=== PATIENT | male | born 1960 | race Caucasian/White ===

== ENCOUNTER 2019-03-24 20:16 | Emergency (ER) | payer MEDICAID, OTHER ==
--- NOTE | 2019-03-24 21:39 | ED ---
Abdominal Pain/Male - HPI Summary HPI Summary: The patient is a 58 y/o male presenting to [facility] with a chief complaint of right -sided abdominal pain onset three weeks with gradual worsening. He reports that when the pain initially began, it was constant for a few days but then subsided. As the pain has returned, it has worsened. The pain is constantly dull in the right side of the abdomen and flank but intermittently presents as sharp shards of glass that occasionally radiates down the right leg or into the right side of the lower back. He notes that he had a few episode of nausea and vomiting with a fever a few days ago, all of which have since subsided. He denies any diarrhea or fevers. He endorses anxiety and disorientation with the pain, as he does not feel mentally well. He has not taken any medications RNP for treatment. Pain is currently rated 8/10 in severity. He has not experienced this pain before, but he has a history of hepatitis C. PMHx: hole in stomach repair as child. No FHx of abdominal conditions. 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 Medications reviewed. Allergies noted. - History of Current Complaint Chief Complaint: EDFlankPain Stated Complaint: ABD PAIN/DIZZINESS/NAUSEA PER PT Time Seen by Provider: 03/24/19 21:23 Hx Obtained From: Patient Onset/Duration: Lasting Weeks - three, Still Present Timing: Constant Severity Initially: Mild Severity Currently: Moderate Pain Intensity: 8 Pain Scale Used: 0-10 Numeric Location: Discrete At: RUQ, Discrete At: RLQ Radiates: Yes Radiates to: Back, Flank, Other - RLE Character: Other: - constantly dull with intermittent sharpness Aggravating Factor(s): Nothing Alleviating Factor(s): Nothing Associated Signs And Symptoms: Positive: Fever - resolved, Nausea - resolved, Vomiting - resolved, Other - anxious, "disorientation". Negative: Diarrhea - Allergies/Home Medications Allergies/Adverse Reactions: Allergies Allergy/AdvReac Type Severity Reaction Status Date / Time No Known Allergies Allergy Verified 03/24/19 20:21 Home Medications: Home Medications NK [No Home Medications Reported] 03/24/19 [History Confirmed 03/24/19] PMH/Surg Hx/FS Hx/Imm Hx Endocrine/Hematology History: Denies: Hx Diabetes Cardiovascular History: Denies: Hx Hypertension Psychiatric History: Reports: Hx Substance Abuse - Surgical History Surgical History: Yes Surgery Procedure, Year, and Place: "hole in stomach" repair as child Infectious Disease History: Yes Infectious Disease History: Reports: Hx Hepatitis - C Denies: Traveled Outside the [place] in Last 30 Days - Family History Known Family History: Negative: Other - abdominal issues - Social History Alcohol Use: None Alcohol Amount: former 4 years ago Hx Substance Use: Yes Substance Use Type: Reports: None Substance Use Comment - Amount & Last Used: sober for 3 years Hx Tobacco Use: Yes Smoking Status (MU): Former Smoker - Additional Comments History Additional Comments: hepatitis C, "hole in stomach" repair as child, no family history of abdominal conditions Review of Systems - ROS Summary Review of Systems Summary: Home Medications Medication Instructions Recorded Confirmed Type NK [No Home Medications Reported] 03/24/19 03/24/19 History Positive: Fever - resolved Positive: Abdominal Pain - right-side into flank, RLE, and right low back, Vomiting - resolved, Nausea - resolved. Negative: Diarrhea Positive: Anxious, Other - "disorientation" All Other Systems Reviewed And Are Negative: Yes Physical Exam - Summary Physical Exam Summary: General: Well-developed, Thin male. No acute distress. HEENT: Normocephalic, Atraumatic. Eyes: Conjuctiva normal, PERRL. Oropharynx: Clear, mucous membranes moist, (-) exudates. Neck: Soft, FROM, (-) lymphadenopathy, (-) thyromegaly, (-) JVD. Cardiovascular: Normal sinus rhythm, (-) murmur. Lungs: Clear to auscultation bilaterally (-) wheezes, (-) rales, (-) rhonchi. Abdomen: Soft, some mild RUQ tenderness, non-distended, (-) organomegaly, normal bowel sounds. Back: (-) CVA tenderness Extremities: No edema. Skin: Warm, dry, (-) rash. Neuro: Alert and oriented x3, no focal deficits. Psychiatric: Mood normal, flat affect. Triage Information Reviewed: Yes Vital Signs On Initial Exam: Initial Vitals Temp Pulse Resp BP Pulse Ox 98.4 F 66 16 152/92 97 03/24/19 20:19 03/24/19 20:19 03/24/19 20:19 03/24/19 20:19 03/24/19 20:19 Vital Signs Reviewed: Yes Procedures - Sedation Patient Received Moderate/Deep Sedation with Procedure: No Diagnostics - Vital Signs Vital Signs Temp Pulse Resp BP Pulse Ox 03/24/19 20:19 98.4 F 66 16 152/92 97 - Laboratory Result Diagrams: 03/24/19 21:51 03/24/19 21:51 Lab Statement: Any lab studies that have been ordered have been reviewed, and results considered in the medical decision making process. - CT Abd/Pel CT CT Interpretation Completed By: Radiologist Summary of CT Findings: Impression: No CT findings to correlate with patient's symptomatology. ED physician has reviewed this report. Re-Evaluation - Re-Evaluation First Eval Re-Evaluation Time: 00:55 Comment: I have discussed results with the patient and nausea has resolved with Zofran. Discussed symptoms that warrant immediate return to ED. Abdominal Pain Male Course/Dx - Course Course Of Treatment: 58-year-old male presents with vague right upper quadrant pain. Sometimes going into his right lower quadrant sometimes going around to his flank. Seems concerned about his liver as he has known hepatitis C. Has been clean of alcohol or drugs. No fevers or chills. No vomiting diarrhea. Physical exam demonstrates mild discomfort in the right upper quadrant. No other tenderness. Laboratory is demonstrated a normal white count and normal liver function tests. CAT scan demonstrates no acute abnormality of the abdomen pelvis areas. Discussed with patient length. Patient discharged home. Follow up with [facility]. Follow-up sooner for any worsening symptoms. Patient administered IV Zofran for nausea. - Diagnoses Provider Diagnoses: RUQ abdominal pain Discharge ED - Sign-Out/Discharge Documenting (check all that apply): Patient Departure - Patient will be discharged home. - Discharge Plan Condition: Stable Disposition: HOME Patient Education Materials: Abdominal Pain (ED) Referrals: [facility] [Outside] - 3 Days Additional Instructions: Please follow up with your primary care physician within three days. Please return to ED for any new or worsening symptoms. - Billing Disposition and Condition Condition: STABLE Disposition: Home - Attestation Statements Document Initiated by Scribe: Yes Documenting Scribe: Luisa Leon Provider For Whom Scribe is Documenting (Include Credential): Dr. Ofe Pacheco MD Scribe Attestation: Luisa Goldman, scribed for Dr. Ofe Pacheco MD on 03/25/19 at 0337. Scribe Documentation Reviewed: Yes Provider Attestation: The documentation as recorded by the scribe, Luisa Leon accurately reflects the service I personally performed and the decisions made by me, Dr. Ofe Pacheco MD Status of Scribe Document: Viewed
[2019-03-24 22:05] LABS: Urine Appearance Clear; Urine Bilirubin Negative (Negative); Urine Blood 1+ (Negative); Urine Color Yellow; Urine Glucose Negative (Negative); Urine Ketones 1+ (Negative); Urine Nitrite Negative (Negative); Urine Protein Negative (Negative); Urine Specific Gravity 1.018 (1.010-1.030); Urine Urobilinogen Negative (Negative)
[2019-03-24 22:05] LABS: ABS Eosinophils 0.1 10^3/ul (0-0.6); ABS Lymphocytes 1.9 10^3/ul (1.0-4.8); ABS Monocytes 0.6 10^3/ul (0-0.8); ABS Neutrophils 3.9 10^3/ul (1.5-7.7); Eosinophil % 0.9 %; Hematocrit 42 % (42-52); Hemoglobin 14.1 g/dL (14.0-18.0); Lymphocyte % 29.5 %; Mean Corpuscular HGB Conc 34 g/dL (31-36); Mean Corpuscular Hemoglobin 31 pg (27-31); Mean Corpuscular Volume 91 fL (80-94); Mean Platelet Volume 9.2 fL (7.4-10.4); Nucleated Red Blood Cells % 0.1; Platelet Count 127 10^3/uL (150-450); Red Blood Count 4.58 10^6 /uL (4.18-5.48); Red Cell Distribution Width 14 % (10-15); White Blood Count 6.5 10^3/uL (3.5-10.8)
[2019-03-24 22:07] LABS: Urine Bacteria Absent (Absent); Urine Red Blood Cell 1+(3-5/hpf) (Absent); Urine White Blood Cell Trace(0-5/hpf) (Absent)
[2019-03-24 22:10] LABS: INR 1.17 (0.82-1.09)
[2019-03-24 22:18] LABS: ALT 28 U/L (7-52); AST 27 U/L (13-39); Albumin/Globulin Ratio 1.5 (1-3); Alkaline Phosphatase 46 U/L (34-104); Amylase 27 U/L (29-103); Anion Gap 6 mmol/L (2-11); Blood Urea Nitrogen 18 mg/dL (6-24); C Reactive Protein 11.68 mg/L (<8.01); CO2 Carbon Dioxide 28 mmol/L (22-32); Calcium 8.7 mg/dL (8.6-10.3); Chloride 103 mmol/L (101-111); EGFR African American 104.5 (>60); EGFR Non-African American 86.4 (>60); Globulin 2.7 g/dL (2-4); Glucose 84 mg/dL (70-100); Potassium 3.7 mmol/L (3.5-5.0); Sodium 137 mmol/L (135-145); Total Protein 6.7 g/dL (6.4-8.9)
[2019-03-24] MEDS ORDERED: Iohexol 300* (CONTRAST) 10 ML SDV IV ONE (22:54)
[2019-03-25] MEDS ORDERED: Ondansetron INJ* 2 MG/ML VIAL IV ONE (00:36)
[2019-03-25 01:09] VITALS: BP 138/97
== END 2019-03-25 01:06 | disposition home or self-care (01) ==
LOC: ED 20:16
DX: R10.11 Right upper quadrant pain (principal); Z86.19 Personal history of other infectious and parasitic diseases; Z87.891 Personal history of nicotine dependence
CPT/HCPCS: 36415; 74177; 80053; 81003; 81015; 82140; 82150; 83605; 83690; 85025; 85610; 86140; 87086; 96374; 99282; J2405; Q9967

== ENCOUNTER 2019-03-27 21:17 | Emergency (ER) | payer OTHER ==
[2019-03-27] MEDS ORDERED: Dicyclomine CAP* 10 MG PO ONE (22:20)
[2019-03-27] MEDS ORDERED: Famotidine TAB* 20 MG PO ONE (22:20)
--- OUTSIDE RECORDS SUMMARY | 2019-03-27 22:22 | XMS REPORT | Continuity of Care Document ---
:1960 External Reference #:[id number] Author Name Mor Dolan MD (transmitted by agent of provider Caridad Linares) Address [address] [place] [id number] Care Team Providers Name Role Phone Mor Dolan MD - Hospitalist Care Team Information Cable Television Technician [phone] Problems Active Problems Provider Date Nondependent opioid abuse in remission Mor Dolan MD Onset: 03/27/2019 Chronic hepatitis C Mor Dolan MD Onset: 03/27/2019 Right upper quadrant pain Mor Dolan MD Onset: 03/27/2019 Social History Type Date Description Comments Sex Unknown Tobacco Use Start: Unknown End: Unknown Patient is a former smoker Smoking Status Reviewed: 03/27/19 Patient is a former smoker Allergies, Adverse Reactions, Alerts Description No Known Drug Allergies Medications Active Medications SIG Qnty Indications Ordering Provider Date Daily Multiple womens smarty Unknown Vitamins pants Tablets Suboxone Unknown 4-1mg Film Immunizations Description No Information Available Vital Signs Date Vital Result Comment 03/27/2019 1:11pm Height 68 inches 5'8" Weight 144.00 lb Heart Rate 63 /min BP Systolic 118 mmHg BP Diastolic 77 mmHg Body Temperature 97.2 F O2 % BldC Oximetry 97 % BMI (Body Mass Index) 21.9 kg/m2 Results Description No Information Available Procedures Description No Information Available Medical Devices Description No Information Available Encounters Description No Information Available Assessments Date Code Description Provider 03/27/2019 R10.11 Right upper quadrant pain Mor Dolan MD 03/27/2019 B18.2 Chronic viral hepatitis C Mor Dolan MD 03/27/2019 F11.11 Opioid abuse, in remission Mor Dolan MD Plan of Treatment Future Appointment(s):04/16/2019 10:00 am - Mor Dolan MD at [facility] - [address] 03/28/2019 2:40 pm - Joaquim Diaz M.D. at [facility] Ngquivmq69/22/2020 - Mor Dolan, MDR10.11 Right upper quadrant painNew Xrays:US Gallbladder, Ordered: 03/27/19US Liver Elastography, Ordered: 03/27/19Follow up:Week of Apr 72dvE98.2 Chronic viral hepatitis CReferral:Joaquim Diaz MD, Infectious JjdzrfamX50.11 Opioid abuse, in remissionReferral:[facility] [place] [facility], Clinic/Center Functional Status Description No Information Available Mental Status Description No Information Available Referrals Refer to Dr Reason for Referral Status Appt Date [facility] [place] suboxone user, transplant from [place]. Created [facility] opioid abuse hx. [address] [place] [address] [phone] Joaquim Diaz MD Hepatitis C. Created [address] [place] [address] [place] [address] [phone]
--- NOTE | 2019-03-27 22:25 | ED ---
Abdominal Pain/Male - HPI Summary HPI Summary: Pt is a 58 y/o M presenting to the ED with a chief complaint of abd pain initially onset multiple weeks ago. He states he recently had an MRI done and he was not prescribed or diagnosed with anything, but the pain has become acutely worse. He reports nausea, and pain in the mid-right region of his abd. He denies vomiting, fever, diarrhea, or past surgeries on his abd. He states he voiced thoughts of hurting himself while in triage d/t the increased amount of pain and wanting it to stop. - History of Current Complaint Chief Complaint: EDAbdPain Stated Complaint: SEVERE STOMACH PAIN PER PT Time Seen by Provider: 03/27/19 22:09 Hx Obtained From: Patient Onset/Duration: Gradual Onset, Lasting Weeks, Still Present Timing: Constant, Lasting Weeks Severity Initially: Moderate Severity Currently: Severe Pain Intensity: 8 Pain Scale Used: 0-10 Numeric Location: Diffuse Radiates: No Aggravating Factor(s): Nothing Alleviating Factor(s): Nothing Associated Signs And Symptoms: Positive: Nausea. Negative: Fever, Vomiting, Diarrhea - Allergies/Home Medications Allergies/Adverse Reactions: Allergies Allergy/AdvReac Type Severity Reaction Status Date / Time No Known Allergies Allergy Verified 03/24/19 20:21 PMH/Surg Hx/FS Hx/Imm Hx Previously Healthy: Yes Endocrine/Hematology History: Denies: Hx Diabetes Cardiovascular History: Denies: Hx Hypertension Psychiatric History: Reports: Hx Substance Abuse - Surgical History Surgery Procedure, Year, and Place: "hole in stomach" repair as child - Immunization History Date of Influenza Vaccine: 12/2018 Infectious Disease History: Yes Infectious Disease History: Reports: Hx Hepatitis - C Denies: Traveled Outside the [place] in Last 30 Days - Family History Known Family History: Negative: Other - abdominal issues - Social History Alcohol Use: None Alcohol Amount: former 4 years ago Hx Substance Use: Yes Substance Use Type: Reports: None Substance Use Comment - Amount & Last Used: sober for 3 years Hx Tobacco Use: Yes Smoking Status (MU): Former Smoker Review of Systems Negative: Fever Positive: Abdominal Pain, Nausea. Negative: Vomiting, Diarrhea All Other Systems Reviewed And Are Negative: Yes Physical Exam - Summary Physical Exam Summary: Appearance: Well-appearing, Well-nourished, lying in bed comfortably Skin: Warm, dry, no obvious rash Eyes: sclera anicteric, no conjunctival pallor ENT: mucous membranes moist, pharynx appears normal Neck: Supple, nontender Respiratory: Clear to auscultation, no signs of respiratory distress Cardiovascular: Normal S1, S2. No murmurs. Normal distal pulses in tibial and radial bilaterally. Abdomen: Soft, nontender, normal active bowel sounds present Musculoskeletal: Normal, Strength/ROM Intact Neurological: A&Ox3, awake and alert, mentation is normal, speech is fluent and appropriate Psychiatric: affect is normal, does not appear anxious or depressed Triage Information Reviewed: Yes Vital Signs On Initial Exam: Initial Vitals Temp Pulse Resp BP Pulse Ox 97.7 F 72 16 153/94 97 03/27/19 21:19 03/27/19 21:19 03/27/19 21:19 03/27/19 21:19 03/27/19 21:19 Vital Signs Reviewed: Yes Procedures - Sedation Patient Received Moderate/Deep Sedation with Procedure: No Diagnostics - Vital Signs Vital Signs Temp Pulse Resp BP Pulse Ox 03/27/19 21:19 97.7 F 72 16 153/94 97 - Laboratory Result Diagrams: 03/27/19 22:26 03/27/19 22:26 Lab Statement: Any lab studies that have been ordered have been reviewed, and results considered in the medical decision making process. - EKG 2244 Cardiac Rate: NL - 60 EKG Rhythm: Sinus Rhythm ST Segment: Normal Ectopy: None Summary of EKG Findings: EKG at 2244 shows NSR at 60 BPM, P waves, QRS complex, and T waves are within normal limits, T waves and intervals are normal, no ischemic changes. This is a normal EKG. ED physician has reviewed and interpreted this EKG. Abdominal Pain Male Course/Dx - Course Course Of Treatment: Pt is a 58 y/o M presenting to the ED with a chief complaint of abd pain initially onset multiple weeks ago. He reports nausea, and pain in the mid-right region of his abd. He denies vomiting, fever, diarrhea , or past surgeries on his abd. He states he voiced thoughts of hurting himself while in triage d/t the increased amount of pain and wanting it to stop. However he is not actively suicidal; his chief complaint relates to the abdominal pain, not a mental health issue. Pt's physical exam is nml with a benign abdominal exam. EKG at 2244 shows NSR at 60 BPM, P waves, QRS complex, and T waves are within normal limits, T waves and intervals are normal, no ischemic changes. This is a normal EKG. ED physician has reviewed and interpreted this EKG. Pt will be d/c'ed with dx of abd pain. He is stable and agreebale with this plan though quite concerned that a definite diagnosis has not yet been made. - Diagnoses Provider Diagnoses: Abdominal pain Discharge ED - Sign-Out/Discharge Documenting (check all that apply): Patient Departure - Discharge Plan Condition: Good Disposition: HOME Prescriptions: Famotidine TAB* [Pepcid 20 MG TAB*] 40 mg PO BID #40 tab Patient Education Materials: Acute Abdominal Pain (ED) Referrals: [facility] [Outside] - 4 Days Additional Instructions: The repeat lab tests we ran tonkirstie were unremarkable. I suspect the cause of your pain is irritation in the stomach, which can come from a number of conditions including ulcers. I have prescribed high dose pepcid which should help, though it may take a few days to kick in. Followup is very important here , especially if you do not start to improve as I anticipate. You may need more specialized testing, such as an endoscopy. With respect to diet, I would stick to a bland diet for the time being. - Billing Disposition and Condition Condition: GOOD Disposition: Home - Attestation Statements Document Initiated by Sanford: Yes Documenting Scribe: Mer Fang Provider For Whom Sanford is Documenting (Include Credential): Ifeanyi Duncan MD. Scribe Attestation: I, Mer Fang, scribed for Ifeanyi Duncan MD. on 03/28/19 at 1922. Scribe Documentation Reviewed: Yes Provider Attestation: The documentation as recorded by the sanford, Mer Fang accurately reflects the service I personally performed and the decisions made by me, Ifeanyi Duncan MD. Status of Scribe Document: Viewed
[2019-03-27 22:35] LABS: ABS Basophils 0.1 10^3/ul (0-0.2); ABS Eosinophils 0.1 10^3/ul (0-0.6); ABS Lymphocytes 2.3 10^3/ul (1.0-4.8); ABS Monocytes 0.7 10^3/ul (0-0.8); ABS Neutrophils 4.1 10^3/ul (1.5-7.7); Eosinophil % 0.9 %; Hematocrit 40 % (42-52); Hemoglobin 13.6 g/dL (14.0-18.0); Lymphocyte % 31.4 %; Mean Corpuscular HGB Conc 34 g/dL (31-36); Mean Corpuscular Hemoglobin 31 pg (27-31); Mean Corpuscular Volume 90 fL (80-94); Mean Platelet Volume 9.1 fL (7.4-10.4); Platelet Count 151 10^3/uL (150-450); Red Blood Count 4.45 10^6 /uL (4.18-5.48); Red Cell Distribution Width 14 % (10-15); White Blood Count 7.2 10^3/uL (3.5-10.8)
[2019-03-27 22:53] LABS: ALT 39 U/L (7-52); AST 31 U/L (13-39); Albumin 4.1 g/dL (3.2-5.2); Albumin/Globulin Ratio 1.5 (1-3); Alkaline Phosphatase 46 U/L (34-104); Anion Gap 7 mmol/L (2-11); BUN/Creatinine Ratio 13.8 (8-20); Blood Urea Nitrogen 17 mg/dL (6-24); CO2 Carbon Dioxide 26 mmol/L (22-32); Calcium 8.8 mg/dL (8.6-10.3); Chloride 105 mmol/L (101-111); EGFR African American 72.9 (>60); EGFR Non-African American 60.2 (>60); Globulin 2.7 g/dL (2-4); Glucose 97 mg/dL (70-100); Sodium 138 mmol/L (135-145); Total Protein 6.8 g/dL (6.4-8.9)
[2019-03-27] MEDS ORDERED: Morphine 4 MG/ML VIAL (1 ml) 4 MG/ML VIAL IV PRN (23:33)
[2019-03-27] MEDS ORDERED: Ketorolac INJ* 30 MG/ML 1 ML VIAL IV PUSH ONE (23:33)
[2019-03-28 01:39] LABS: Urine Appearance Clear; Urine Bilirubin Negative (Negative); Urine Blood Negative (Negative); Urine Color Yellow; Urine Glucose Negative (Negative); Urine Ketones Trace (Negative); Urine Nitrite Negative (Negative); Urine Protein Negative (Negative); Urine Specific Gravity 1.017 (1.010-1.030); Urine Urobilinogen Negative (Negative)
[2019-03-28 02:58] VITALS: BP 143/89
== END 2019-03-28 01:57 | disposition home or self-care (01) ==
LOC: ED 21:17
DX: R10.84 Generalized abdominal pain (principal); R11.0 Nausea; Z87.891 Personal history of nicotine dependence
CPT/HCPCS: 36415; 80053; 81003; 83605; 83690; 84484; 85025; 86140; 93005; 96374; 99283; A9270-GY; J1885

== ENCOUNTER 2019-04-25 16:41 | Emergency (ER) | payer OTHER ==
--- OUTSIDE RECORDS SUMMARY | 2019-04-25 16:53 | XMS REPORT | Continuity of Care Document ---
:1960 External Reference #:[id number] Author Name Joaquim Diaz M.D. (transmitted by agent of provider Caridad Linares) Address [address] [place] [id number] Care Team Providers Name Role Phone Mor Dolan MD - Hospitalist Care Team Information Casing Crew [phone] Problems Active Problems Provider Date Nondependent opioid abuse in remission Mor Dolan MD Onset: 03/27/2019 Chronic hepatitis C Mor Dolan MD Onset: 03/27/2019 Right upper quadrant pain Mor Dolan MD Onset: 03/27/2019 Social History Type Date Description Comments Sex Unknown Tobacco Use Start: Unknown Patient is a current had quit smoking, smoker, smokes every day recently started again Smoking Status Reviewed: 03/28/19 Patient is a current had quit smoking, smoker, smokes every day recently started again Allergies, Adverse Reactions, Alerts Description No Known Drug Allergies Medications Active Medications SIG Qnty Indications Ordering Provider Date Daily Multiple womens smarty Unknown Vitamins pants Tablets Suboxone Unknown 4-1mg Film Percocet 1 - 2 tabs by Unknown 5-325mg Tablets mouth every 4 - 6 hours as needed for pain. Famotidine Ifeanyi Duncan, 40mg Tablets M.D. Immunizations Description No Information Available Vital Signs Date Vital Result Comment 03/28/2019 2:22pm Height 68 inches 5'8" Weight 144.00 lb Heart Rate 60 /min BP Systolic Sitting 120 mmHg BP Diastolic Sitting 86 mmHg Respiratory Rate 14 /min Body Temperature 96.9 F BMI (Body Mass Index) 21.9 kg/m2 03/27/2019 1:11pm Height 68 inches 5'8" Weight 144.00 lb Heart Rate 63 /min BP Systolic 118 mmHg BP Diastolic 77 mmHg Body Temperature 97.2 F O2 % BldC Oximetry 97 % BMI (Body Mass Index) 21.9 kg/m2 Results Description No Information Available Procedures Description No Information Available Medical Devices Description No Information Available Encounters Description No Information Available Assessments Date Code Description Provider 03/28/2019 B18.2 Chronic viral hepatitis C Joaquim Diaz M.D. 03/27/2019 R10.11 Right upper quadrant pain Mor Dolan MD 03/27/2019 B18.2 Chronic viral hepatitis C oMr Dolan MD 03/27/2019 F11.11 Opioid abuse, in remission Mor Dolan MD Plan of Treatment Future Appointment(s):04/11/2019 2:20 pm - Joaquim Diaz M.D. at [facility] Jjzkoaab05/11/2020 10:00 am - Mor Dolan MD at [facility] - [address] 03/28/2019 - Joaquim Diaz M.D.B18.2 Chronic viral hepatitis CNew Labs:Hepatitis C Genotype, Ordered: 03/28/19Hepatitis C Rna Quant, Ordered: 03/28/19Hepatitis B Surface Ag, Ordered: 03/28/19HIV 1& 2 p24 Screen, Ordered: 03/28/19Fibro Test-Actitest, Serum, Ordered: Follow up:2 weeks Functional Status Description No Information Available Mental Status Description No Information Available Referrals Refer to Dr Reason for Referral Status Appt Date [facility] [place] Of sub[place] user, transplant from [place]. [facility] opioid abuse hx. [address] [place] [address] [phone] Joaquim Diaz MD Hepatitis C. Scheduled 03/28/[address] [place] [address] [place] [address] [phone]
--- OUTSIDE RECORDS SUMMARY | 2019-04-25 16:53 | XMS REPORT | Continuity of Care Document ---
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 [phone] Problems Active Problems Provider Date Nondependent opioid abuse in remission Mor Dolan MD Onset: 03/27/2019 Chronic hepatitis C Mor Dolan MD Onset: 03/27/2019 Right upper quadrant pain Mor Dolan MD Onset: 03/27/2019 Social History Type Date Description Comments Sex Unknown ETOH Use Denies alcohol use ETOH Use Has consumed alcohol in the past Tobacco Use Start: Unknown Patient is a current had quit smoking, smoker, smokes every day recently started again Recreational Drug Use Former Drug User Smoking Status Reviewed: 04/18/19 Patient is a current had quit smoking, smoker, smokes every day recently started again Allergies, Adverse Reactions, Alerts Description No Known Drug Allergies Medications Active Medications SIG Qnty Indications Ordering Provider Date Simethicone 1 tab every 6 30units R10.11 Mor Dolan MD 04/18/2019 80mg hours as needed Chewtabs bloating Senna 1 by mouth every 90caps R10.11 oMr Dolan MD 04/18/2019 8.6mg Capsules day Docu Soft once a day 30caps R10.11 Mor Dolan MD 04/18/2019 100mg Capsules Epclusa 1 by mouth every 28tabs Joaquim DShefali 04/11/2019 400-100mg day Muna Diaz Tablets Daily Multiple womens smarty Unknown Vitamins pants Tablets Suboxone Unknown 4-1mg Film Famotidine Ifeanyi Duncan, 40mg M.D. Tablets Immunizations Description No Information Available Vital Signs Date Vital Result Comment 04/18/2019 1:43pm Height 68 inches 5'8" Weight 137.00 lb Heart Rate 84 /min BP Systolic Sitting 128 mmHg BP Diastolic Sitting 81 mmHg O2 % BldC Oximetry 98 % BMI (Body Mass Index) 20.8 kg/m2 04/11/2019 1:50pm Height 68 inches 5'8" Weight 138.12 lb Heart Rate 72 /min BP Systolic Sitting 140 mmHg BP Diastolic Sitting 82 mmHg Respiratory Rate 14 /min Body Temperature 97.4 F BMI (Body Mass Index) 21.0 kg/m2 Results Test Acquired Date Facility Test Result H/L Range Note Laboratory test 03/28/2019 [facility] Hepatitis C 1a Abnormal Undetected 1 finding [address] [place] [address] [phone] Hepatitis C Rna Quant [id number] IU/mL Abnormal Undetected 2 Hepatitis B Core AB Igm Nonreactive Nonreactive Hepatitis B Surface Ag Nonreactive Nonreactive Afp Tumor Marker 2.4 ng/mL <6.0 3 HIV 1&2 p24 03/28/2019 [facility] HIV 4th Nonreactive Nonreactive Screen [address] [place] [address] [phone] Fibro 03/28/2019 [facility] FibroTest Score 0.26 Test-Actite [address] [place] [address] [phone] FibroTest Stage F0-F1 FibroTest Interpretation no fibrosis 4 ActiTest Score 0.26 ActiTest Grade A0-A1 ActiTest Interpretation no activity 5 FibroTest-ActiTest Comment See Comment 6 [employer] Serial Number [id number] Apolipoprotein A1, S 104 mg/dL Abnormal >=120 Noteq-7-Kjeaduxxsylqf, S 191 mg/dL 100 - 280 Haptoglobin, S 136 mg/dL 30 - 200 Alanine Aminotransferase (Alt) 48 U/L 7-55 Gamma Glutamyltransferase GGT 8 U/L 8 - 61 Bilirubin, Total, S 0.6 mg/dL <=1.2 7 1 ADDITIONAL INFORMATION This test was performed using the CiDRA RealTime HCV Genotype II assay ([employer] [place], [place]). Test Performed by: [place] [address] Main Galley Scullion: Ramiro Renae M.D. Ph.D.; CLIA# [id number] 2 Result in log IU/mL is 6.13. ADDITIONAL INFORMATION The quantification range of this assay is 15 to 100,000,000 IU/mL (1.18 log to 8.00 log IU/mL). Testing was performed using the cinthia HCV test ([employer] with the cinthia [employer]0 System. Test Performed by: [place] [address] Main Galley Scullion: Ramiro Renae M.D. Ph.D.; CLIA# [id number] 3 ADDITIONAL INFORMATION The testing method is an immunoenzymatic assay manufactured by [employer] and performed on the [employer] DxI 800. Values obtained with different assay methods or kits may be different and cannot be used interchangeably. Test results cannot be interpreted as absolute evidence for the presence or absence of malignant disease. Alpha-Fetoprotein values are not interpretable in females for the investigation of malignant disease. Test Performed by: [place] [address] Main Galley Scullion: Ramiro Renae M.D. Ph.D.; CLIA# [id number] 4 FibroTest estimates liver fibrosis FibroTest Score Stage Interpretation 0.00-0.21 F0 no fibrosis 0.21-0.27 F0-F1 no fibrosis 0.27-0.31 F1 minimal fibrosis 0.31-0.48 F1-F2 minimal fibrosis 0.48-0.58 F2 moderate fibrosis 0.58-0.72 F3 advanced fibrosis 0.72-0.74 F3-F4 advanced fibrosis 0.74-1.00 F4 severe fibrosis (Cirrhosis) 5 ActiTest estimates necroinflammatory activity ActiTest Score Grade Interpretation 0.00-0.17 A0 no activity 0.17-0.29 A0-A1 no activity 0.29-0.36 A1 minimal activity 0.36-0.52 A1-A2 minimal activity 0.52-0.60 A2 significant activity 0.60-0.62 A2-A3 significant activity 0.62-1.00 A3 severe activity 6 The reliability of results is dependent on compliance with the preanalytical and analytical conditions recommended by [employer]. The tests have to be deferred for: acute hemolysis, acute hepatitis, acute inflammation, extra hepatic cholestasis. The advice of a specialist should be sought for interpretation in chronic hemolysis and Gilbert's syndrome. The test interpretation is not validated in liver transplant patients. Isolated extreme values of one of the components should lead to caution in interpreting the results. In case of discordance between a biopsy result and a test, it is recommended to seek advice of a specialist. The causes of these discordances could be due to a flaw of the test or to a flaw in the biopsy: i.e. a liver biopsy has a 33% variability rate for one fibrosis stage. FibroTest is interpretable for chronic hepatitis B and C, alcoholic and non alcoholic steatosis. ActiTest is interpretable for chronic hepatitis B and C. ADDITIONAL INFORMATION This test was developed and its performance characteristics determined by [facility] in a manner consistent with CLIA requirements. This test has not been cleared or approved by the U.S. Food and Drug Administration. 7 Test Performed by: [facility] [address] [place] [address] Main Galley Scullion: Ramiro Renae M.D. Ph.D.; CLIA# [id number] Test Performed by: [facility] [address] [place] [address] Main Galley Scullion: Ramiro Renae M.D. Ph.D.; [facility]# [id number] Procedures Date Code Description Status 03/06/2011 73610177 Colonoscopy Completed Medical Devices Description No Information Available Encounters Type Date Location Provider Dx Diagnosis Office Visit 04/11/2019 [facility] Joaquim Sánchez B18.2 Chronic viral 2:20p Infectious Diseases Muna Diaz hepatitis C Office Visit 03/28/2019 [facility] Joaquim Sánchez B18.2 Chronic viral 2:40p Infectious Diseases Muna Diaz hepatitis C R10.11 Right upper quadrant pain Assessments Date Code Description Provider 04/18/2019 R10.11 Right upper quadrant pain Mor Dolan MD 04/18/2019 B18.2 Chronic viral hepatitis C Mor Dolan MD 04/18/2019 F11.11 Opioid abuse, in remission Mor Dolan MD 04/11/2019 B18.2 Chronic viral hepatitis C Joaquim Diaz M.D. 03/28/2019 B18.2 Chronic viral hepatitis C Joaquim Diaz M.D. 03/28/2019 R10.11 Right upper quadrant pain Joaquim Diaz M.D. 03/27/2019 R10.11 Right upper quadrant pain Mor Dolan MD 03/27/2019 B18.2 Chronic viral hepatitis C Mor Dolan MD 03/27/2019 F11.11 Opioid abuse, in remission Mor Dolan MD Plan of Treatment Future Appointment(s):05/27/2019 1:20 pm - Joaquim Diaz M.D. at [facility] Infectious Qsmhuufr27/13/2020 - Mor Dolan MDR10.11 Right upper quadrant painNew Medication:Simethicone 80 mg - 1 tab every 6 hours as needed bloatingSenna 8.6 mg - 1 by mouth every dayDocu Soft 100 mg - once a dayB18.2 Chronic viral hepatitis CF11.11 Opioid abuse, in remission Functional Status Description No Information Available Mental Status Description No Information Available Referrals Refer to Reason for Referral Status Appt Date Alcohol & Drug Kevin Of suboxone user, transplant from [place]. Sent [facility] opioid abuse hx. [address] [facility] [address] [place], [place] [id number] [phone] Joaquim Diaz MD Hepatitis C. Scheduled 03/28/2019 [address] [place] [address] [place] [address] [phone]
--- OUTSIDE RECORDS SUMMARY | 2019-04-25 16:53 | XMS REPORT | Continuity of Care Document ---
:1960 External Reference #:[id number] Author Name Joaquim Diaz M.D. 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 [phone] Problems Active Problems Provider Date Nondependent opioid abuse in remission Mor Dolan MD Onset: 03/27/2019 Chronic hepatitis C Mor Dolan MD Onset: 03/27/2019 Right upper quadrant pain Mor Dolan MD Onset: 03/27/2019 Social History Type Date Description Comments Sex Unknown Tobacco Use Start: Unknown Patient is a current had quit smoking, smoker, smokes every day recently started again Smoking Status Reviewed: 04/11/19 Patient is a current had quit smoking, [...] Available Vital Signs Date Vital Result Comment 04/11/2019 1:50pm Height 68 inches 5'8" Weight 138.12 lb Heart Rate 72 /min BP Systolic Sitting 140 mmHg BP Diastolic Sitting 82 mmHg Respiratory Rate 14 /min Body Temperature 97.4 F BMI (Body Mass Index) 21.0 kg/m2 03/28/2019 2:22pm Height 68 inches 5'8" Weight 144.00 lb Heart Rate 60 /min BP Systolic Sitting 120 mmHg BP Diastolic Sitting 86 mmHg Respiratory Rate 14 /min Body Temperature 96.9 F BMI (Body Mass Index) 21.9 kg/m2 Results Test Acquired Date Facility Test Result H/L Range Note Laboratory test 03/28/2019 [facility] Hepatitis C 1a Abnormal Undetected [address] [place] [address] [phone] Hepatitis C Rna Quant [id number] IU/mL Abnormal Undetected 2 Hepatitis B Core AB Igm Nonreactive Nonreactive Hepatitis B Surface Ag Nonreactive Nonreactive Afp Tumor Marker 2.4 ng/mL <6.0 3 HIV 1&2 p24 03/28/2019 [facility] HIV 4th Nonreactive Nonreactive Screen [address] [place] [address] [phone] Fibro 03/28/2019 [facility] FibroTest Score 0.26 Test-Actite [address], [place] [address] [phone] FibroTest Stage F0-F1 FibroTest Interpretation no fibrosis 4 ActiTest Score 0.26 ActiTest Grade A0-A1 ActiTest Interpretation no activity 5 FibroTest-ActiTest Comment See Comment 6 BioPredictive Serial Number [id number] Apolipoprotein A1, S 104 mg/dL Abnormal >=120 Iseuv-5-Jrwfsuhdsgygi, S 191 mg/dL 100 - 280 Haptoglobin, S 136 mg/dL 30 - 200 Alanine Aminotransferase (Alt) 48 U/L 7-55 Gamma Glutamyltransferase GGT 8 U/L 8 - 61 Bilirubin, Total, S 0.6 mg/dL <=1.2 7 1 ADDITIONAL INFORMATION This test was performed using the Edgar RealTime HCV Genotype II assay ([employer] [place], [place]). Test Performed by: [facility] [address] [place] [address] Parakeet Raiser: Ramiro Renae M.D. Ph.D.; CLIA# [id number] 2 Result in log IU/mL is 6.13. ADDITIONAL INFORMATION The quantification range of this assay is 15 to 100,000,000 IU/mL (1.18 log to 8.00 log IU/mL). Testing was performed using the cinthia HCV test ([employer] with the cinthia 6800 System. Test Performed by: [place] [address] Parakeet Raiser: Ramiro Renae M.D. Ph.D.; CLIA# [id number] 3 ADDITIONAL INFORMATION The testing method is an immunoenzymatic assay manufactured by [employer]. and performed on the [employer] 800. Values obtained with different assay methods or kits may be different and cannot be used interchangeably. Test results cannot be interpreted as absolute evidence for the presence or absence of malignant disease. Alpha-Fetoprotein values are not interpretable in females for the investigation of malignant disease. Test Performed by: [facility] [address] Parakeet Raiser: Ramiro Renae M.D. Ph.D.; CLIA# [id number] 4 FibroTest estimates liver fibrosis FibroTest Score [...] the preanalytical and analytical conditions recommended by [employer]. The tests have to be deferred for: [...] developed and its performance characteristics determined by [facility] in a manner consistent with CLIA requirements. This test has not been cleared or approved by the U.S. Food and Drug Administration. 7 Test Performed by: [facility] [place] [facility] [id number] Parakeet Raiser: Ramiro Renae M.D. Ph.D.; CLIA# [id number] Test Performed by: [facility] [address] [place] [address] Parakeet Raiser: Ramiro Renae M.D. Ph.D.; CLIA# [id number] Procedures Description No Information Available Medical Devices Description No Information Available Encounters Type Date Location Provider Dx Diagnosis Office Visit 03/28/2019 [facility] Joaquim Sánchez B18.2 Chronic viral 2:40p Infectious Diseases Muna Diaz hepatitis C R10.11 Right upper quadrant pain Assessments Date Code Description Provider 04/11/2019 B18.2 Chronic viral hepatitis C Joaquim [...] 1:20 pm - Joaquim Diaz M.D. at [facility] For Infectious Pxxlywfx34/11/2020 10:00 am - Mor Dolan MD at [facility] Internal Medicine - [address] 03/27/2019 - Mor Dolan, MDR10.11 Right upper quadrant painNew Xrays:US Gallbladder, Scheduled: 04/12/19US Liver Elastography , Scheduled: 04/12/19Follow up:Week Apr 15B18.2 Chronic viral hepatitis CReferral:Joaquim Diaz MD, Infectious UnqmjskeK36.11 Opioid abuse, in remissionReferral:Alcohol & Drug [facility] Functional Status Description No Information Available Mental Status Description No Information Available Referrals Refer to Reason for Referral Status Appt Date Alcohol & Drug [facility] Of suboxone user, transplant from [place]. Sent [facility] opioid abuse hx. [address] [facility] [address] [place] [address] [phone] Joaquim Diaz MD Hepatitis C. Scheduled 03/28/2019 [facility] [place] [address] [place] [phone]
--- NOTE | 2019-04-25 17:23 | ED ---
Dizziness - HPI Summary HPI Summary: Patient is a 58 y/o M presenting to the ED for a chief complaint of dizziness that began the morning of 04/25/19. Patient also reports intermittent shortness of breath, generalized weakness, and lightheadedness. Patient does not endorse chest pain. He reports he did not eat a lot on 04/25/19, but his symptoms improved after eating. Patient reports weight loss after reducing fats in his diet. He is taking Amoxicillin 3 days ago for a dental abscess. He is concerned that he is having an adverse reaction to the Amoxicillin. Patient was seen at [facility] in the past for abdominal pain. PMHx is significant for substance abuse. - History Of Current Complaint Chief Complaint: EDDizziness Stated Complaint: DIZZY PER PT Time Seen by Provider: 04/25/19 17:07 Hx Obtained From: Patient Onset/Duration: Still Present Timing: Hours Severity Initially: Moderate Severity Currently: Moderate Character: Weak, Dizzy Aggravating Factor(s): Nothing Alleviating Factor(s): Other - Eating Associated Signs And Symptoms: Positive: SOB. Negative: Chest Pain - Allergies/Home Medications Allergies/Adverse Reactions: Allergies Allergy/AdvReac Type Severity Reaction Status Date / Time No Known Allergies Allergy Verified 04/25/19 16:48 Home Medications: Home Medications Famotidine TAB* [Pepcid 20 MG TAB*] 40 mg PO BID #40 tab 03/28/19 [Rx] PMH/Surg Hx/FS Hx/Imm Hx Previously Healthy: Yes Endocrine/Hematology History: Denies: Hx Diabetes Cardiovascular History: Denies: Hx Hypertension Sensory History: Denies: Hx Legally Blind, Hx Deafness Opthamlomology History: Denies: Hx Legally Blind EENT History: Denies: Hx Deafness Psychiatric History: Reports: Hx Substance Abuse - Surgical History Surgical History: Yes Surgery Procedure, Year, and Place: "hole in stomach" repair as child - Immunization History Date of Influenza Vaccine: 12/2018 Infectious Disease History: Yes Infectious Disease History: Reports: Hx Hepatitis - C Denies: Traveled Outside the [place] in Last 30 Days - Family History Known Family History: Negative: Other - abdominal issues - Social History Occupation: Employed Full-time Lives: Alone Alcohol Use: None Alcohol Amount: former 4 years ago Hx Substance Use: Yes Substance Use Type: Reports: Other Substance Use Comment - Amount & Last Used: sober for 3 years Hx Tobacco Use: Yes Smoking Status (MU): Former Smoker Review of Systems Positive: Other - Positive weight loss Negative: Chest Pain Positive: Shortness Of Breath Neurological/Mental Status: Other - Positive lightheadedness and dizziness Positive: Weakness - Generalized All Other Systems Reviewed And Are Negative: Yes Physical Exam - Summary Physical Exam Summary: Constitutional: Well-developed, Well-nourished, Alert. (-) Distressed Skin: Warm, Dry HENT: Normocephalic; Atraumatic Eyes: Conjunctiva normal Neck: Musculoskeletal ROM normal neck. (-) JVD, (-) Nuchal rigidity Cardio: Rhythm regular, rate normal, Heart sounds normal; Intact distal pulses; Radial pulses are 2+ and symmetric. (-) Murmur Pulmonary/Chest wall: Effort normal. (-) Respiratory distress, (-) Wheezes, (-) Rales Abd: Soft. (-) Tenderness, (-) Distension, (-) Guarding, (-) Rebound Musculoskeletal: (-) Edema Lymph: (-) Cervical adenopathy Neuro: Alert, PERRL, Oriented x3, Strength normal, Cranial nerves II-XII are grossly intact. SILT, Strength 5/5 BUE and BLE, (-) Dysmetria, (-) Nystagmus, ambulates w steady gait. Psych: Mood and affect Normal Triage Information Reviewed: Yes Vital Signs On Initial Exam: Initial Vitals Temp Pulse Resp BP Pulse Ox 98.4 F 70 18 138/90 99 04/25/19 16:45 04/25/19 16:45 04/25/19 16:45 04/25/19 16:45 04/25/19 16:45 Vital Signs Reviewed: Yes Procedures - Sedation Patient Received Moderate/Deep Sedation with Procedure: No Diagnostics - Vital Signs Vital Signs Temp Pulse Resp BP Pulse Ox 04/25/19 16:45 98.4 F 70 18 138/90 99 - Laboratory Result Diagrams: 04/25/19 17:38 04/25/19 17:38 Lab Statement: Any lab studies that have been ordered have been reviewed, and results considered in the medical decision making process. - Radiology Chest X-ray Radiology Interpretation Completed By: Radiologist Summary of Radiographic Findings: Chest X-ray IMPRESSION: No acute cardiopulmonary process by radiograph. Reviewed by Dr. Kasper. - EKG 17:15 Cardiac Rate: NL - 61 BPM EKG Rhythm: Sinus Rhythm ST Segment: Normal Ectopy: None Summary of EKG Findings: An EKG at 17:15 reveals normal sinus rhythm with 61 BPM , nml axis, nml intervals. No STEMI. No acute changes. ED physician has reviewed and interpreted this EKG. Re-Evaluation - Re-Evaluation First Eval Re-Evaluation Time: 18:05 Change: Improved - labs normal, orthostatics WNL. Tolerating PO, well appearing. Dizzy Course/Dx - Course Course Of Treatment: 58 y/o F w recent dental infection on amoxicillin p/w lightheadedness. Differential diagnosis includes: Cardiac causes - will check EKG, troponin, get orthostatics. Electrolyte disturbances - will check CMP. Anemia - will check CBC. Normal neuro exam, do not suspect intracranial pathology. Will hydrate, PO challenge. - Diagnoses Provider Diagnoses: Lightheadedness Discharge ED - Sign-Out/Discharge Documenting (check all that apply): Patient Departure - Discharge - Discharge Plan Condition: Stable Disposition: HOME Patient Education Materials: Lightheadedness (ED) Referrals: [facility] [Outside] Additional Instructions: You were seen in the emergency department for lightheadedness. Your labs did not show any evidence of abnormalities. Please drink lots of fluids. Please follow up with your primary care doctor in next 2-3 days and return to emergency department for passing out, chest pain, severe headaches,worsening or concerning symptoms. It was a pleasure taking care of you today. - Billing Disposition and Condition Condition: STABLE Disposition: Home - Attestation Statements Document Initiated by Cecilia: Yes Documenting Candyibe: Kathie Kaur Provider For Whom Cecilia is Documenting (Include Credential): hCung Kasper MD Scribe Attestation: I, Kathie Kaur, scribed for Chung Kasper MD on 04/25/19 at 1848. Scribe Documentation Reviewed: Yes Provider Attestation: The documentation as recorded by the Kathie christina accurately reflects the service I personally performed and the decisions made by me, Chung Kasper MD Status of Scribe Document: Viewed
[2019-04-25] MEDS ORDERED: NS 0.9% 1000 ML** 1,000 ML IV ONE (17:27)
[2019-04-25 17:46] LABS: ABS Basophils 0.1 10^3/ul (0-0.2); ABS Eosinophils 0.1 10^3/ul (0-0.6); ABS Lymphocytes 1.4 10^3/ul (1.0-4.8); ABS Monocytes 0.4 10^3/ul (0-0.8); ABS Neutrophils 2.7 10^3/ul (1.5-7.7); Eosinophil % 1.3 %; Hematocrit 40 % (42-52); Hemoglobin 13.3 g/dL (14.0-18.0); Lymphocyte % 29.7 %; Mean Corpuscular HGB Conc 34 g/dL (31-36); Mean Corpuscular Hemoglobin 31 pg (27-31); Mean Corpuscular Volume 91 fL (80-94); Mean Platelet Volume 9.1 fL (7.4-10.4); Platelet Count 147 10^3/uL (150-450); Red Blood Count 4.36 10^6 /uL (4.18-5.48); Red Cell Distribution Width 13 % (10-15); White Blood Count 4.7 10^3/uL (3.5-10.8)
[2019-04-25 18:08] LABS: Albumin 4.3 g/dL (3.2-5.2); Albumin/Globulin Ratio 1.6 (1-3); BUN/Creatinine Ratio 12.5 (8-20); Calcium 9.1 mg/dL (8.6-10.3); EGFR African American 119.7 (>60); EGFR Non-African American 98.9 (>60); Globulin 2.7 g/dL (2-4); Potassium 4.3 mmol/L (3.5-5.0); Total Bilirubin 0.4 mg/dL (0.2-1.0)
[2019-04-25 18:27] VITALS: BP 140/87
== END 2019-04-25 18:26 | disposition home or self-care (01) ==
LOC: ED 16:41
DX: R42 Dizziness and giddiness (principal); R06.02 Shortness of breath; R53.1 Weakness; Z87.891 Personal history of nicotine dependence
CPT/HCPCS: 36415; 71046; 80053; 83735; 84484; 85025; 93005; 99283